=== PATIENT | male | born 1990 ===

== ENCOUNTER → 2016-03-26 | Outpatient (CLI) | payer BC ==
--- NOTE | 2016-03-26 15:06 | DIAGNOSTIC IMAGING REPORT ---
THORACIC SPINE 3 VIEWS CLINICAL HISTORY: Midthoracic back pain. FINDINGS: AP, lateral, and swimmer's views of the thoracic spine are obtained. No prior studies are available for comparison at the time of dictation. The skeletal structures are well mineralized. No fracture or malalignment is seen. Vertebral body height and alignment are maintained. Intervertebral disc spaces are normal. The transverse processes and pedicles are grossly intact on the frontal view. The imaged lung parenchyma appears clear. IMPRESSION: No acute bony abnormality is identified in the thoracic spine. Electronically signed by: Darek De Dios M.D. 03/26/2016 3:04 PM Dictated Date/Time: 03/26/2016 3:03 PM
== END | disposition home or self-care (01) ==
LOC: C.RDSM 15:47
PROVIDERS: ATTEND Family Medicine
DX: M54.6 Pain in thoracic spine (principal)

== ENCOUNTER → 2016-05-11 | Outpatient (CLI) | payer BC ==
--- NOTE | 2016-05-11 15:22 | DIAGNOSTIC IMAGING REPORT ---
LEFT WRIST 3 VIEWS CLINICAL HISTORY: Left wrist pain. FINDINGS: 3 views of left wrist are obtained. No prior studies are available for comparison at the time of dictation. The skeletal structures are well mineralized. No fracture is seen. The joint spaces of the wrist are well-maintained. The overlying soft tissues are within normal limits. IMPRESSION: Unremarkable radiographic assessment of the left wrist. Electronically signed by: Darek De Dios M.D. 05/11/2016 3:21 PM Dictated Date/Time: 05/11/2016 3:20 PM
--- NOTE | 2016-05-11 15:24 | DIAGNOSTIC IMAGING REPORT ---
RIGHT WRIST 3 VIEWS CLINICAL HISTORY: Right wrist pain. Repetitive motion injury. FINDINGS: 3 views of right wrist are obtained. No prior studies are available for comparison at the time of dictation. The skeletal structures are well mineralized. No fracture is seen. The joint spaces of the wrist are well-maintained. The overlying soft tissues are within normal limits. IMPRESSION: Unremarkable radiographic assessment of the right wrist. Electronically signed by: Darek De Dios M.D. 05/11/2016 3:22 PM Dictated Date/Time: 05/11/2016 3:21 PM
== END | disposition home or self-care (01) ==
LOC: C.RDSM 15:00
PROVIDERS: ATTEND Family Medicine
DX: M25.531 Pain in right wrist (principal); M25.532 Pain in left wrist